=== PATIENT | male | born 1975 | race American Indian/Alaskan Native ===

== ENCOUNTER 2021-04-27 15:02 | Emergency (ER) | payer OTHER ==
[2021-04-27 18:28] LABS: Basophils % (Auto) 0.2 % (0.0-1.8); Eosinophils # (Auto) 0.1 K/mm3 (0.0-0.4); Eosinophils % (Auto) 0.6 % (0.0-4.3); Hematocrit 52.2 % (35.5-45.6); Hemoglobin 18.3 gm/dl (11.8-15.2); Lymphocytes # (Auto) 1.3 K/mm3 (1.2-5.4); Lymphocytes % (Auto) 15.6 % (13.4-35.0); Mean Corpuscular HGB Conc 35 % (32-34); Mean Corpuscular Volume 97 fl (84-94); Monocytes # (Auto) 0.9 K/mm3 (0.0-0.8); Monocytes % (Auto) 10.4 % (0.0-7.3); Platelet Count 199 K/mm3 (140-440); Red Blood Count 5.38 M/mm3 (3.65-5.03)
[2021-04-27 18:49] LABS: Alanine Aminotransferase 68 units/L (7-56); Albumin 5.3 g/dL (3.9-5); BUN/Creatinine Ratio 13; Blood Urea Nitrogen 14 mg/dL (9-20); Calcium 10.5 mg/dL (8.4-10.2); Hemolysis Index 13
[2021-04-27] MEDS ORDERED: ASPIRIN 81 MG TAB CHEW PO ONE (20:07)
[2021-04-27] MEDS ORDERED: ONDANSETRON 4 MG ODT TAB PO ONE (20:07)
[2021-04-27] MEDS ORDERED: FAMOTIDINE 20 MG TAB PO ONE (20:07)
[2021-04-27 23:11] VITALS: BP 142/98
== END 2021-04-27 23:12 | disposition home or self-care (01) ==
LOC: ED 15:02
DX: K21.9 Gastro-esophageal reflux disease without esophagitis (principal); R07.89 Other chest pain; F41.8 Other specified anxiety disorders; I10 Essential (primary) hypertension; Z79.899 Other long term (current) drug therapy
CPT/HCPCS: 36415; 71046; 80053; 83735; 84484; 85025; 85379; 93005; 99284; Q0162